=== PATIENT | male | born 1985 | race Native Hawaiian/Other Pacific Islander ===

== ENCOUNTER 2019-07-28 05:35 | Emergency (ER) | payer OTHER ==
[~2019-07-28] VITALS: Ht 165.1 cm; Wt 72.6 kg
[2019-07-28 05:36] VITALS: BP 146/88
== END 2019-07-28 07:32 | disposition home or self-care (01) ==
LOC: ED 05:35
DX: S09.8XXA Other specified injuries of head, initial encounter (principal); S16.1XXA Strain of muscle, fascia and tendon at neck level, initial encounter; S20.212A Contusion of left front wall of thorax, initial encounter; S20.211A Contusion of right front wall of thorax, initial encounter; V59.3XXA Occupant (driver) (passenger) of pick-up truck or van injured in unspecified nontraffic accident, initial encounter; Y92.89 Other specified places as the place of occurrence of the external cause
CPT/HCPCS: 99283

== ENCOUNTER 2021-10-10 13:07 | Outpatient (CLI) | payer OTHER ==
[2021-10-10 14:06] LABS: PLATELET COUNT 273 K/uL (142-355)
== END 2021-10-10 21:22 | disposition home or self-care (01) ==
LOC: US 13:07
PROVIDERS: ATTEND Nurse Practitioner Family
DX: R60.0 Localized edema (principal)
CPT/HCPCS: 36415; 80053; 81002; 83880; 85027

== ENCOUNTER 2021-12-10 14:04 | Emergency (ER) | payer OTHER ==
[~2021-12-10] VITALS: Ht 165.1 cm; Wt 77.1 kg
[2021-12-10 14:20] VITALS: TEMP 96.8
[2021-12-10 15:15] VITALS: BP 148/92
== END 2021-12-10 15:34 | disposition home or self-care (01) ==
LOC: ED 14:04
DX: K94.21 Gastrostomy hemorrhage (principal); Y83.3 Surgical operation with formation of external stoma as the cause of abnormal reaction of the patient, or of later complication, without mention of misadventure at the time of the procedure; Y92.89 Other specified places as the place of occurrence of the external cause
CPT/HCPCS: 99283